=== PATIENT | female | born 1930 | race Caucasian/White ===

== ENCOUNTER → 2016-12-26 | Outpatient (REF) | payer MEDICARE ==
[2016-12-26 10:16] LABS: INFLUENZA VIRUS TYPE A ANTIBOD Negative (NEGATIVE); INFLUENZA VIRUS TYPE B ANTIBOD Negative (NEGATIVE)
== END ==
LOC: LAB 09:49
PROVIDERS: ATTEND Family Medicine
DX: R05 Cough (principal); R50.9 Fever, unspecified
CPT/HCPCS: 87502

== ENCOUNTER 2017-02-07 14:38 | Outpatient (RCR) | payer MEDICARE ==
--- NOTE | 2017-02-10 10:44 | PT/OT/ST INITIAL EVALUATION ---
Department of Health and Human Services Form Approved [facility] Care Financing Administration OMB No. [id number] PLAN OF CARE/ASSESSMENT FOR OUTPATIENT REHABILITATION (Complete for Initial Claims Only) 1. PATIENT'S NAME Elaine Giron 2. ACC # [id number] 3. [facility] [id number] 4. PROVIDER NO. [id number] 5. TYPE: SPT 6. PRIOR HOSPITALIZATION NA 7. PRIMARY DX Dysphagia 8. SECONDARY DX NA 9. ONSET DATE February 03, 2017 10. REFERRAL DATE February 03, 2017 11. SOC. DATE February 07, 2017 12. TIME OF EVAL 14:38 12. REFERRING PHYSICIAN Regis Lopez MD 13. CHARGES/UNITS NA 14. G CODES Currently [id number] 1 to 19% impaired. Goals [id number] 1 to 19% impaired. Discharge [id number] 1 to 19% impaired. 15. PRIOR LEVEL OF FUNCTION; PERTINENT HISTORY (Prior therapy results, reason for referral.) S: Prior to therapy the patient consented to today's evaluation and treatment. The patient is an 86-year-old female referred to speech therapy by Dr. Lopez to address dysphagia. The patient was unable to rate her overall and general health. Primary Complaint: Her primary complaint is food gets stuck in her pharynx. The speech therapist at [facility] states the patient coughs at meal times and she has been on a mechanical soft diet with nectar-thick liquids. Prior level of function: Prior to this the patient was not having difficulties. Therapy History: She does receive speech therapy at [facility] where she resides. Aggravating factors: She has no aggravating factors. Diagnostic testing: No diagnostic testing. Past medical history: Includes dementia, tremors, osteoporosis and hypertension. Past surgical history: Unable to be obtained. Current medications: Unable to be obtained secondary to poor historian. 16. INITIAL ASSESSMENT/SAFETY PRECAUTIONS/MEDICAL COMPLICATIONS (Level of function at start of care. Be specific, use objective measures, list problems.) O: ASSESSMENT: Upon assessment, the patient was given a bedside swallow. She had all of her own teeth and she demonstrated no labial or lingual weakness. She was then given a modified barium swallow study in AP view. She was given pudding-thick through thin liquid consistencies, ground meat, crackers, and a 10-mm barium pill. She demonstrated slow mastication of swallowed materials, but was able to clear her oral cavity and had a bolus control of the posterior tongue that was within normal limits. She had a pharyngeal swallow trigger without delay. She did demonstrate valleculae residue with all consistencies, but cleared it with an independent secondary swallow. She demonstrated no pyriform sinus residue. She did have pooling in the valleculae with thin liquids followed by laryngeal penetration with thin liquids, however, she demonstrated no aspiration with any consistencies and she demonstrates a reflexive cough after the penetration of the thin liquids. The patient swallowed the 10-mm barium pill with no difficulties. The patient presents with a mild pharyngeal dysphagia. Recommend mechanical soft diet with ground meat and gravy. No straws and nectar-thick liquids secondary to penetration on thin liquids. Speech pathology services are indicated for pharyngeal strengthening and diet tolerance. TODAY'S TREATMENT: No treatment provided today as this is an evaluation only. 17. INITIAL POC: (Specify procedures, modalities, short and adjunct faculty for medical terminology goals) A: This was discussed with the speech therapist from [facility] and she agreed to today's established plan of care of evaluation only and she will follow up with the patient at [facility]. P: Plan to discharge the patient at this time. 18. FREQUENCY Evaluation only 19. DURATION NA 20. FUNCTIONAL LEVEL (End of claim period) 21. PHYSICIAN SIGNATURE ? ON FILE OR ENTER HERE: 22. DATE: I certify the need for these services furnished under this plan of care and if for partial hospitalization. 23. CERTIFICATION FROM THROUGH FORM [id number]
== END 2017-02-07 18:00 | disposition home or self-care (01) ==
LOC: ST 14:38
PROVIDERS: ATTEND Family Medicine
DX: R13.10 Dysphagia, unspecified (principal)
CPT/HCPCS: 92611; G8996; G8997; G8998

== ENCOUNTER → 2017-02-07 | Outpatient (CLI) | payer MEDICARE ==
[~2017-02-07] MED LIST: ATOR10TA; CELE200C; CODE-54 PO; LISI1TAB10; RALO60TA; TRAM-25; TRAZ100T92
--- NOTE | 2017-02-07 16:11 | Diagnostic Imaging Report ---
INDICATION: Dysphagia. FINDINGS: [employer] film of the chest showed mild cardiomegaly with prominent ascending and descending aorta unchanged from 05/13/2011. Questionable nodule versus nipple shadows project over the left base. Left axillary surgical clips are present. Patient was in the lateral sitting position and the speech therapist was in attendance. Patient was given pudding thickness, and nectar thickness materials. These were handled satisfactorily with no aspiration or other significant abnormality. There is good epiglottic inversion and satisfactory hypopharyngeal stripping. With thin liquids, there was flash penetration but no aspiration. There is mild pooling with thin liquids which cleared after one swallow. Barium laced food was given and this was handled satisfactorily. A 12 mm barium tablet was also handled satisfactorily with swallowing with water. IMPRESSION: 1. With thin liquids, flash penetration occurred with no aspiration. Also, mild pooling with thin liquids. Swallowing with other consistencies was within normal limits. 2. Left basilar nipple shadow versus pulmonary nodule. Followup with PA chest x-ray with nipple markers. Dictated by: Dictated on workstation # [id number]
== END ==
LOC: RAD 13:54
PROVIDERS: ATTEND Family Medicine
DX: R13.10 Dysphagia, unspecified (principal)
CPT/HCPCS: 74230